=== PATIENT | male | born 1970 | race Caucasian/White ===

== ENCOUNTER 2017-10-27 10:47 | Inpatient (IN) | payer MEDICAID ==
[~2017-10-27] VITALS: Ht 193 cm; Wt 79.8 kg
--- NOTE | ~2017-10-27 | HP ---
PATIENT: KERI ELIZABETH MEDICAL RECORD: [id number] ACCOUNT: [id number] LOCATION:[id number] : [id number] ADMISSION DATE: 10/27/17 PCP: No PCP HISTORY AND PHYSICAL EXAMINATION CHIEF COMPLAINT: Abdominal pain. HISTORY OF PRESENT ILLNESS: This is a 47-year-old white male who has come to [place] from [place], [place] for family reasons. 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 He states he was diagnosed with Crohn's disease many years ago and really has not had a PCP or a GI doctor for 25 years. He presented to the Emergency Room today with worsening abdominal pain over the last couple of days. He had nausea and vomiting but tells me that happened yesterday. The main reason he came in was because he had some "funky" looking stool with BM. Workup in the Emergency Room was fairly unremarkable except CT of the abdomen showed markedly dilated loops of small bowel with air-fluid levels, some postsurgical changes. This suggested partial or intermittent small-bowel obstruction. He was admitted with a plan to place NG tube, although he does not have an NG tube in place now. Currently, he is not in a lot of pain. PAST MEDICAL AND SURGICAL HISTORY: Crohn's disease. There is a report of arthritis and some chronic back pain and it was also reported that he has reflux, though when I asked him if he had gastric reflux, he said no. PAST SURGICAL HISTORY: He reports "7 or 8" surgeries for bowel obstruction. The last was about 9 years ago, he would never follow up with the surgeon or doctor after he would get out of the hospital apparently. HOME MEDICATIONS: None. DRUG ALLERGIES: None. HABITS: Quit smoking 3 months ago. Denies alcohol or drug use. SOCIAL HISTORY: Has a significant other. He moved here from [place], is working in a lumber yard right now. REVIEW OF SYSTEMS: GENERAL: No major weight changes. HEENT: No particular sinus or allergy problems. RESPIRATORY: No diagnosis of COPD or asthma. CARDIAC: No known heart problems. GASTROINTESTINAL: See above history with his Crohn's disease. GENITOURINARY: No significant problems. MUSCULOSKELETAL: Does not voice any problems to me. NEUROLOGIC: No migraines or seizures. PSYCHIATRIC: Denies depression or melancholia. PHYSICAL EXAMINATION: VITAL SIGNS: Temperature 99.0, pulse 100, respirations 20, blood pressure 138/90, O2 sat 98% on room air. There is no NG tube in place. HEENT: Normal except he has a very poor oral hygiene. He has several teeth missing. HISTORY AND PHYSICAL [id number] KERI ELIZABETH NECK: Supple. HEART: Regular rate and rhythm. LUNGS: Clear. ABDOMEN: For me it shows a soft belly. No significant tenderness to palpation. No guarding, rebound, no mass. EXTREMITIES: No edema. LABORATORY DATA: CBC with a white count of 8900, hemoglobin 12.3, hematocrit 37.0, platelets 319,000. Basic metabolic panel is all okay. Liver functions are okay except alkaline phosphatase a little high at 130. Urinalysis is normal. Amylase 57, lipase 241. CT of the abdomen showed markedly dilated loops of small bowel with air-fluid levels, some postsurgical changes. There is an 8-mm pulmonary nodule in the lung base and probably needs followup CT. ASSESSMENT: 1. Abdominal pain. 2. Partial or intermittent small-bowel obstruction. 3. Crohn's disease. PLAN: General surgery has been consulted and their plan was to place NG tube, give IV fluids, IV antibiotics, steroids, and pain control. He appears to not be in any kind of pain at this time. He has no NG tube in and other tests or procedures as warranted. We will see how he looks in the morning and possible discharge. TRANSINT:[id number] Voice Confirmation ID: [id number] DOCUMENT ID: [id number] ARIANA AYALA MD at 0849 CC: [id number] DICTATION DATE: 10/27/172114 [employer] K[employer]EN SUPERVISOR: 10/28/17 0030 ADM IN [facility] [address] [id number]
[2017-10-27 11:56] LABS: APPEARANCE CLEAR (CLEAR); BILIRUBIN NEGATIVE (NEGATIVE); COLOR YELLOW (YELLOW); GLUCOSE NEGATIVE (NEGATIVE); KETONE NEGATIVE (NEGATIVE); NITRITE NEGATIVE (NEGATIVE); PROTEIN NEGATIVE (NEGATIVE); SPECIFIC GRAVITY 1.015 (1.005-1.020); UROBILINOGEN NORMAL (NORMAL)
[2017-10-27 12:07] LABS: BASOPHILS 0.3 % (0-2); EOSINOPHILS 0.8 % (0-7); HEMOGLOBIN 12.3 g/dL (13.5-17.5); IMMATURE GRANULOCYTES 0.2 % (0-5); LYMPHOCYTES 11.4 % (15-50); MCH 29.3 pg (26.0-34.0); MCHC 33.2 g/dL (31.0-37.0); MCV 88.1 fL (80.0-100.0); MEAN PLATELET VOLUME 10.2 fL (7.4-10.4); MONOCYTES 5.2 % (2-11); NEUTROPHILS 82.1 % (40-80); PLATELET COUNT 319 10x3/uL (130-400); RDW 15.3 % (11.5-14.5); WBC 8.9 10x3/uL (4.8-10.8)
[2017-10-27 12:11] LABS: ALBUMIN 2.8 g/dL (3.4-5.0); ANION GAP 15.8 mmol/L (8-16); BILIRUBIN - TOTAL 0.29 mg/dL (0.2-1.3); CALCIUM 8.3 mg/dL (8.5-10.1); CARBON DIOXIDE 17.7 mmol/L (21.0-32.0); CREATININE - SERUM 1.2 mg/dL (0.6-1.3); POTASSIUM - SERUM 3.5 mmol/L (3.5-5.1); PROTEIN - SERUM 7.1 g/dL (6.4-8.2)
[2017-10-27 18:54] VITALS: BP 106/72; BMI 21.4
[2017-10-27 22:11] VITALS: BP 129/56
[2017-10-28 04:12] VITALS: BP 117/59
[2017-10-28 06:19] LABS: BASOPHILS 0 % (0-2); EOSINOPHILS 0 % (0-7); HEMATOCRIT 35.4 % (42.0-54.0); IMMATURE GRANULOCYTES 0.2 % (0-5); LYMPHOCYTES 5.1 % (15-50); MCH 29.6 pg (26.0-34.0); MCHC 33.9 g/dL (31.0-37.0); MCV 87.4 fL (80.0-100.0); MEAN PLATELET VOLUME 10.6 fL (7.4-10.4); MONOCYTES 0.2 % (2-11); NEUTROPHILS 94.5 % (40-80); PLATELET COUNT 291 10x3/uL (130-400); RBC 4.05 10x6/uL (4.20-6.10); RDW 15.1 % (11.5-14.5); WBC 8.6 10x3/uL (4.8-10.8)
[2017-10-28 06:37] LABS: ALBUMIN 2.3 g/dL (3.4-5.0); ALKALINE PHOSPHATASE 109 U/L (46-116); ALT (SGPT) 28 U/L (10-68); BILIRUBIN - TOTAL 0.37 mg/dL (0.2-1.3); CALC OSMOLALITY 277 mosm/kg (275-300); CALCIUM 7.6 mg/dL (8.5-10.1); CARBON DIOXIDE 18.7 mmol/L (21.0-32.0); CHLORIDE - SERUM 109 mmol/L (98-107); POTASSIUM - SERUM 3.6 mmol/L (3.5-5.1); SODIUM 138 mmol/L (136-145); UREA NITROGEN 11 mg/dL (7-18); eGFR NON AFRICAN AMERICAN 85 mL/min (90-120)
[2017-10-28 06:38] LABS: GLUCOSE 153 mg/dL (74-106)
[2017-10-28 09:23] VITALS: BP 110/87
[2017-10-28 12:25] VITALS: BP 130/64
[2017-10-28 12:35] VITALS: Ht 193 cm; Wt 79.8 kg
[2017-10-28 17:02] VITALS: BP 130/81
[2017-10-28] MEDS ORDERED: MEDROL DOSE PACK4 MG PO (17:53)
== END 2017-10-28 19:02 | disposition home or self-care (01) | DRG 389 ==
LOC: D.ER 10:47 → D.MS 15:07
PROVIDERS: Family Medicine
PROC: 0D9670Z Drainage of Stomach with Drainage Device, Via Natural or Artificial Opening (ICD-10-PCS; principal; 2017-10-27)
DX: K56.600 Partial intestinal obstruction, unspecified as to cause (principal); K50.90 Crohn's disease, unspecified, without complications; G89.29 Other chronic pain; M54.9 Dorsalgia, unspecified; Z87.891 Personal history of nicotine dependence